=== PATIENT | male | born 1955 | race Caucasian/White ===

== ENCOUNTER → 2024-07-20 15:07 | Outpatient (CLI) | payer MEDICARE, SELFPAY ==
--- NOTE | 2024-07-20 15:13 | DI.RAD.S_ITS ---
PROCEDURE: XR ANKLE LT MIN 3V INDICATIONS: Pain in left foot TECHNIQUE: 3 views of the ankle were acquired. COMPARISON: None. FINDINGS: Bones: No fractures or dislocations. Ankle mortise is normally aligned. No suspicious bony lesions. Plantar calcaneal spur noted. Soft tissues: No tibiotalar joint effusion. Achilles tendon appears normal. IMPRESSION: No evidence of acute osseous abnormality. Plantar calcaneal spur noted. Dictated by: Jovanni Lane M.D. on 07/22/2024 at 11:20 Approved by: Jovanni Lane M.D. on 07/22/2024 at 11:22
--- NOTE | 2024-07-20 15:13 | DI.RAD.S_ITS ---
PROCEDURE: XR FOOT LT MIN 3V INDICATIONS: Pain in left foot TECHNIQUE: 3 views of the foot were acquired. COMPARISON: None. FINDINGS: Bones: No fractures or dislocations. No suspicious bony lesions. Soft tissues: No tibiotalar joint effusion. Achilles tendon appears normal. Plantar calcaneal spur noted. IMPRESSION: No evidence of acute osseous abnormality. Plantar calcaneal spur noted. Dictated by: Jovanni Lane M.D. on 07/22/2024 at 11:23 Approved by: Jovanni Lane M.D. on 07/22/2024 at 11:30
== END ==
PROVIDERS: PCP Family Medicine; Referring Provider Podiatrist Foot & Ankle Surgery; Visit Provider Podiatrist Foot & Ankle Surgery
DX: M79.672 Pain in left foot (principal); M77.32 Calcaneal spur, left foot
CPT/HCPCS: 73610; 73630